=== PATIENT | male | born 1925 | race Caucasian/White ===

== ENCOUNTER → 2016-08-19 | Day surgery (SDC) | payer MEDICARE ==
[~2016-08-19] MED LIST: BELLADONNA ALKALOIDS/OPIUM 60 MG SUPP RECTAL ONE; GENTAMICIN SULFATE 80 MG/2 ML VIAL ONE; LACTATED RINGER'S 1000 ML INJ 1,000 ML ONE; ONDANSETRON HCL 4 MG/2 ML VIAL IV PUSH ONE; PROPOFOL 200 MG/20 ML AMP IV ONE; ceFAZolin INJ 1,000 MG VIAL ONE
--- NOTE | 2016-08-19 09:46 | TN ---
cc: ARIANNE BERG M.D. DATE OF SURGERY: 08/19/2016 PREOPERATIVE DIAGNOSIS Benign prostatic hyperplasia with lower urinary tract symptoms and (ICD - 10 code of N40.1) POSTOPERATIVE DIAGNOSIS Benign prostatic hyperplasia with lower urinary tract symptoms and (ICD - 10 code of N40.1) PROCEDURE: 1. Transurethral vaporization of the prostate (TUVP)(CPT code 78044) 2. Transurethral incision of the prostate (TUIP) (CPT code 89402) INDICATIONS Mr. Curran is an 89-year-old gentleman who previously had a Microwave thermal therapy and then subsequently a green light laser photo vaporization of the prostate some 11 years ago who has recurrence of some lower urinary tract symptoms on local cystoscopy was found to have some redundant or residual tissue mostly in the right lateral lobe which is obstructing crossing the midline obstructing, he presents now for definitive treatment. FINDINGS: Findings are normal urethra, prostatic urethra shows previous TUR defect with redundant or residual right lateral lobe tissue crossing the midline causing obstruction. The bladder shows ureteral orifice normal size, shape and position effluxing clear urine. There is severe trabeculation with some mild small diverticula no stones, tumors or abnormal mucosa. PROCEDURE Procedure as well as risks and benefits were explained to the patient. Informed consent was obtained the patient was taken to the major operative theater where he was placed in supine position. The patient was identified as well as the operative site. A universal time-out was performed in standard fashion. At this time general anesthetic and prophylactic intravenous antibiotics consisting of Ancef 1 gram and gentamicin 80 mg was administered after adequate anesthetic he was placed in low dorsolithotomy position, prepped and draped usual sterile fashion. At this time a 21 [place] cystoscope with a 30 degree lens was inserted urethra and bladder with the above findings. Decision was made to perform transurethral vaporization of prostate using the plasma button and at this time the cystoscope was removed and serial dilation of the urethra was performed using Hina sound, from 16-Zimbabwean the 28-Zimbabwean without difficulty and then the 27 [place] obturator sheath were placed in the bladder. The obturator removed at time Iglesis resectoscope with a 30 lens was inserted along with the button probe and then using the gyrus system and normal saline transurethral vaporization of prostate was performed in standard fashion. Care was taken not to vaporize distal to the proximal verumontanum which was kept in sight during the procedure hemostasis was achieved using the coagulation mode of the system. After resection and an open channel decision was made to perform transurethral incision of the prostate due to high-riding bladder neck and a TUI was preformed using needle electrode in the standard fashion at the level of the right and left ureteral orifice final confirmation, that there was no incidental damage to the bladder or sphincter and then the resectoscope was removed after filling the bladder, pressure was placed on the dome of bladder. There was an excellent stream. A 20-Zimbabwean three-way hematuria catheter was placed with 10 cc of sterile water into the fluid in the irrigation port capped. There was clear urine effluxing. The patient tolerated procedure well, emerged from anesthetic without difficulty, transferred to the recovery in stable condition to be discharged home when criteria is met. No obvious complications. MD ALFREDO Peralta/rachna /9:20 AM /9:29 AM
== END | disposition home or self-care (01) ==
LOC: ESDC 06:06
PROVIDERS: ATTEND Urology
DX: N40.1 Benign prostatic hyperplasia with lower urinary tract symptoms (principal)
CPT/HCPCS: 00910; 00914; 52450; 52601; J0690; J1580; J2405; J3010; J7120